=== PATIENT | male | born 1975 | race Caucasian/White ===

== ENCOUNTER 2020-10-02 02:51 | Emergency (ER) | payer OTHER ==
[2020-10-02] MEDS ORDERED: Ketorolac Tromethamine 60 MG/2 ML VIAL ONE (04:04)
== END 2020-10-02 04:30 ==
LOC: NAV ERS 02:51
DX: S93.602A Unspecified sprain of left foot, initial encounter (principal); W01.0XXA Fall on same level from slipping, tripping and stumbling without subsequent striking against object, initial encounter
CPT/HCPCS: J1885

== ENCOUNTER 2023-03-22 16:41 | Emergency (ER) | payer OTHER ==
[2023-03-22 17:04] LABS: #Basophils 0.1 thou/uL (0.0-0.2); #Eosinphils 0.1 thou/uL (0.0-0.7); #Monocytes 0.5 thou/uL (0.11-0.59); %Basophils 1.4 % (0.0-1.0); %Eosinophils 2.1 % (0.0-10.0); %Lymphocytes 20.6 % (21.0-51.0); %Monocytes 11.3 % (0.0-10.0); %Neutrophils 64.7 % (42.0-75.0); Hematocrit 30.2 % (42.0-52.0); Hemoglobin 9.1 g/dL (14.0-18.0); Mean Corpuscular HGB CONC 30.2 g/dL (32.0-36.0); Mean Corpuscular Hemoglobin 23.2 pg (27.0-31.0); Mean Corpuscular Volume 76.8 fl (78.0-98.0); Mean Platelet Volume 6.3 fL (7.4-10.4); Platelet Count 300 10x3/uL (130-400); RBC Distribution Width 16.8 % (11.5-14.5); Red Blood Cell (RBC) Count 3.94 mill/uL (4.70-6.10); White Blood Cell (WBC) Count 4.6 10x3/uL (4.8-10.8)
[2023-03-22 17:22] LABS: ALT (SGPT) 17 U/L (8-55); AST (SGOT) 25 U/L (5-34); Albumin 3.9 g/dL (3.5-5.0); Alkaline Phosphatase 63 U/L (40-110); Anion Gap 16 mmol/L (10-20); BUN (Urea Nitrogen) 10 mg/dL (8.9-20.6); Bilirubin, Total 0.4 mg/dL (0.2-1.2); Calc. Creatinine Clearance 0 mL/min (70-130); Calcium 8.3 mg/dL (7.8-10.44); Carbon Dioxide 20 mmol/L (22-29); Chloride 106 mmol/L (98-107); Estimated GFR 88; Globulin 2.6 g/dL (2.4-3.5); Glucose 135 mg/dL (70-105); Potassium 3.8 mmol/L (3.5-5.1); Protein, Total 6.5 g/dL (6.0-8.3); Sodium 138 mmol/L (136-145)
[2023-03-22 17:24] LABS: Troponin I Less than 0.010 ng/mL (< 0.028)
[2023-03-22 18:27] LABS: Bilirubin Negative (Negative); Blood, Urine Negative (Negative); Clarity Clear (Clear); Glucose, Urine (Dipstick) Negative (Negative); Ketone, Urine Negative (Negative); Leukocyte Negative (Negative); Nitrite Negative (Negative); Protein, Urine (Dipstick) Negative (Neg-Trace); Specific Gravity, Urine 1.015 (1.005-1.030); Urobilinogen 0.2 mg/dL (Less than 2)
[2023-03-22 18:30] LABS: Squamous Epithelial 0-3 HPF (0-3); WBC/HPF 0-3 HPF (0-3)
[2023-03-22 18:31] LABS: Urine Culture Reflex Yes Yes
[2023-03-22 18:33] LABS: Amphetamine Not Detected (NotDetected); Barbiturates Screen Not Detected (NotDetected); Benzodiazepine Screen Not Detected (NotDetected); Cocaine Metabolite Screen Not Detected (NotDetected); Methadone Not Detected (NotDetected); Methamphetamine Not Detected (NotDetected); Opiate Screen Not Detected (NotDetected); Oxycodone Screen Not Detected (NotDetected); Phencyclidine (PCP) Not Detected (NotDetected); THC/Cannabinoid Screen Not Detected (NotDetected); Tricyclic Screen Not Detected (NotDetected)
== END 2023-03-22 19:18 ==
LOC: NAV ERS 16:41
DX: S01.81XA Laceration without foreign body of other part of head, initial encounter (principal); R55 Syncope and collapse; D64.9 Anemia, unspecified; R00.0 Tachycardia, unspecified; W18.30XA Fall on same level, unspecified, initial encounter
CPT/HCPCS: 12011; 71045; 80053; 80306; 81001; 84443; 84484; 85025; 93005; 96360